=== PATIENT | female | born 1940 | race Caucasian/White ===

== ENCOUNTER 2023-06-17 21:26 | Inpatient (IN) | payer MEDICARE, OTHER ==
[~2023-06-17] VITALS: Ht 167.6 cm; Wt 75.3 kg
[2023-06-17] MEDS ORDERED: PIPERACI/TAZO 3.375GM/D5W 50ML PB IV ONE (21:47)
[2023-06-17 21:51] LABS: BASOPHILS % (AUTO) 0.3 % (0.0-2.0); EOSINOPHILS % (AUTO) 0.1 % (0.0-6.0); HEMATOCRIT 37 % (33-45); LYMPHOCYTES # (AUTO) 1.1 K/uL (0.8-4.8); LYMPHOCYTES % (AUTO) 17.9 % (20.0-44.0); MEAN CORPUSCULAR HEMOGLOBIN 28 PG (26.0-33.0); MEAN CORPUSCULAR HGB CONC 33 g/dl (31.0-36.0); MEAN CORPUSCULAR VOLUME 85 fL (82-100); MONOCYTES # (AUTO) 0.9 K/uL (0.1-1.30); MONOCYTES % (AUTO) 14.4 % (2.0-12.0); NEUTROPHILS # (AUTO) 4.3 K/uL (1.8-8.9); NEUTROPHILS % (AUTO) 67.3 % (43.0-81.0); PLATELET COUNT (AUTO) 158 K/uL (150-450); RED CELL DISTRIBUTION WIDTH 14.8 % (11.5-15.0); WHITE BLOOD COUNT (AUTO) 6.3 K/uL (4.3-11.0)
[2023-06-17] MEDS ORDERED: IV LR 1000 ML 1,000 ML BAG IV ONE (22:00)
[2023-06-17] MEDS ORDERED: VANCOMYCIN 1 GM in IV D5W 250 ML IV ONE (22:00)
[2023-06-17] MEDS ORDERED: PIPERACILLIN /TAZOBACTAM 3.375 G in IV D5W 50 ML IV ONE (22:00)
[2023-06-17 22:08] LABS: LACTIC ACID 1.5 mmol/L (0.4-2.0)
[2023-06-17 22:09] LABS: INR 1.04 (0.91-1.10); PARTIAL THROMBOPLASTIN TIME 32.9 SEC (24.3-34.3)
[2023-06-17 22:13] LABS: CALCIUM, SERUM 8.7 mg/dL (8.5-10.1); CARBON DIOXIDE 28 mmol/L (21-32); CHLORIDE 102 mmol/L (98-107); CREATININE 0.7 mg/dL (0.6-1.3); GLUCOSE 124 mg/dL (74-106); POTASSIUM 4.2 mmol/L (3.5-5.1); SODIUM SERUM 136 mmol/L (136-145); UREA NITROGEN, BLOOD 30 mg/dL (7-18)
[2023-06-17 22:17] LABS: ALANINE AMINOTRANSFERASE 33 U/L (12-78); ALBUMIN 2.9 g/dL (3.4-5.0); ALKALINE PHOSPHATASE 171 U/L (46-116); ASPARTATE AMINOTRANSFERASE 30 U/L (15-37); BILIRUBIN,DIRECT 0.1 mg/dL (0.0-0.2); BILIRUBIN,TOTAL 0.5 mg/dL (0.2-1.0); TOTAL PROTEIN, SERUM 7.1 g/dL (6.4-8.2)
[2023-06-17] MEDS ORDERED: ACETAMINOPHEN 650 MG/SUPP.RECT RC ONE (22:30)
[2023-06-17] MEDS ORDERED: ACETAMINOPHEN 325 MG TABLET PO ONE (22:30)
[2023-06-17] MEDS ORDERED: VANCOMYCIN 1 GM /D5W 250 ML PB IV ONE (22:45)
[2023-06-17] MEDS ORDERED: ACETAMINOPHEN 120 MG/SUPP.RECT RC ONE (22:46)
[2023-06-17 23:14] LABS: APPEARANCE,URINE SLIGHTLY CLOUDY (CLEAR); BILIRUBIN,URINE NEGATIVE (NEGATIVE); BLOOD, URINE NEGATIVE Ery/uL (NEGATIVE); COLOR,URINE YELLOW (YELLOW); KETONES,URINE NEGATIVE (NEGATIVE); LEUKOCYTE ESTERASE ,URINE NEGATIVE (NEGATIVE); NITRITE, URINE POSITIVE (NEGATIVE); PH,URINE 7.5 (5.0-8.0); PROTEIN,URINE NEGATIVE (NEGATIVE); UGLUCOSE NEGATIVE (NEGATIVE)
[2023-06-17 23:17] LABS: ADD URINE CULTURE YES; BACTERIA,URINE Many /HPF (None Seen); RBC,URINE 0-2 /HPF (0-2); SQUAMOUS EPITHELIAL CELL,UR Rare /HPF (None Seen)
[2023-06-18] MEDS ORDERED: ACETAMINOPHEN 325 MG TABLET PO PRN (01:00)
[2023-06-18] MEDS ORDERED: Z GUARD REMEDY 4 OZ OINT TP PRN (01:00)
[2023-06-18] MEDS ORDERED: ZOLPIDEM TARTRATE 5 MG TABLET PO PRN (01:00)
[2023-06-18] MEDS ORDERED: ONDANSETRON HCL/PF 4 MG/2 ML VIAL IVP PRN (01:00)
[2023-06-18] MEDS ORDERED: MAG HYDROX/AL HYDROX/SIMETH 30 ML UDC PO PRN (01:00)
[2023-06-18] MEDS ORDERED: MAGNESIUM HYDROXIDE 30 ML UDC PO PRN (01:00)
[2023-06-18] MEDS ORDERED: PIPERACILLIN /TAZOBACTAM 3.375 G in IV D5W 50 ML IV SCH ×3 (04:00→10:00)
[2023-06-18] MEDS: IV NS 0.9% 1,000 ML IV PRN ×2 (04:42→16:26)
[2023-06-18] MEDS ORDERED: PIPERACI/TAZO 3.375GM/D5W 50ML PB IV ONE (04:53)
[2023-06-18] MEDS ORDERED: VALS160T2 GT (05:37)
[2023-06-18] MEDS ORDERED: MULT-1119 GT (05:37)
[2023-06-18] MEDS ORDERED: ATOR40TA GT (05:37)
[2023-06-18] MEDS ORDERED: HYDR-4076 GT (05:37)
[2023-06-18] MEDS ORDERED: ALBU1.257 IH (05:37)
[2023-06-18] MEDS ORDERED: DOCU-141 GT (05:37)
[2023-06-18] MEDS ORDERED: ACET-2605 GT (05:37)
[2023-06-18] MEDS ORDERED: AMLO5TAB4 GT (05:37)
[2023-06-18] MEDS ORDERED: ACET-868 GT (05:37)
[2023-06-18] MEDS ORDERED: ASPI-1420 GT (05:37)
[2023-06-18 06:57] VITALS: BP 148/59; TEMP 99; O2SAT 98
[2023-06-18 07:02] VITALS: BP 148/59; TEMP 99.7; O2SAT 98
[2023-06-18 08:00] VITALS: BP 156/57; TEMP 99.8; O2SAT 98
[2023-06-18] MEDS: ENOXAPARIN SODIUM 40 MG/0.4 ML DISP.SYRIN SQ SCH (08:21)
[2023-06-18 18:58] VITALS: BP 147/76; TEMP 98.5; O2SAT 98
[2023-06-18 20:00] VITALS: BP 160/73; TEMP 98.8; O2SAT 95
[2023-06-18] MEDS: PIPERACILLIN /TAZOBACTAM 3.375 G in IV D5W 100 ML IV SCH (21:20)
[2023-06-19] VITALS: BP 121/72; TEMP 99; O2SAT 96
[2023-06-19 04:00] VITALS: BP 142/71; TEMP 98.2; O2SAT 96
[2023-06-19 06:40] LABS: BASOPHILS % (AUTO) 0.3 % (0.0-2.0); EOSINOPHILS # (AUTO) 0.1 K/uL (0.0-0.7); EOSINOPHILS % (AUTO) 0.9 % (0.0-6.0); HEMATOCRIT 37 % (33-45); LYMPHOCYTES # (AUTO) 1.6 K/uL (0.8-4.8); LYMPHOCYTES % (AUTO) 25.1 % (20.0-44.0); MEAN CORPUSCULAR HEMOGLOBIN 28 PG (26.0-33.0); MEAN CORPUSCULAR HGB CONC 32 g/dl (31.0-36.0); MEAN CORPUSCULAR VOLUME 89 fL (82-100); MONOCYTES # (AUTO) 0.7 K/uL (0.1-1.30); MONOCYTES % (AUTO) 11.2 % (2.0-12.0); NEUTROPHILS % (AUTO) 62.5 % (43.0-81.0); PLATELET COUNT (AUTO) 123 K/uL (150-450); RED BLOOD CELL COUNT(AUTO) 4.21 MIL/uL (4.0-5.2); RED CELL DISTRIBUTION WIDTH 15.4 % (11.5-15.0); WHITE BLOOD COUNT (AUTO) 6.4 K/uL (4.3-11.0)
[2023-06-19 07:10] LABS: CALCIUM, SERUM 8.7 mg/dL (8.5-10.1); CARBON DIOXIDE 23 mmol/L (21-32); CHLORIDE 103 mmol/L (98-107); CREATININE 0.5 mg/dL (0.6-1.3); GLUCOSE 72 mg/dL (74-106); MAGNESIUM 2.1 mg/dL (1.8-2.4); PHOSPHORUS 3.1 mg/dL (2.5-4.9); POTASSIUM 3.5 mmol/L (3.5-5.1); SODIUM SERUM 136 mmol/L (136-145); UREA NITROGEN, BLOOD 15 mg/dL (7-18)
[2023-06-19 07:30] VITALS: BP 123/101; TEMP 99.5; O2SAT 91
[2023-06-19] MEDS ORDERED: NUTR150016 GT (07:47)
[2023-06-19] MEDS ORDERED: CRAN425C6 GT (07:47)
[2023-06-19] MEDS ORDERED: MULT-447 GT (07:47)
[2023-06-19] MEDS ORDERED: ASPI-1169 GT (07:47)
[2023-06-19] MEDS ORDERED: ZINC56.713 TP (07:47)
[2023-06-19] MEDS: PIPERACILLIN /TAZOBACTAM 3.375 G in IV D5W 100 ML IV SCH ×2 (09:01→20:04)
[2023-06-19] MEDS: ENOXAPARIN SODIUM 40 MG/0.4 ML DISP.SYRIN SQ SCH (09:05)
[2023-06-19] MEDS ORDERED: MAGNESIUM HYDROXIDE 30 ML UDC GT PRN (09:37)
[2023-06-19] MEDS ORDERED: ZOLPIDEM TARTRATE 5 MG TABLET GT PRN (09:37)
[2023-06-19] MEDS ORDERED: MAG HYDROX/AL HYDROX/SIMETH 30 ML UDC GT PRN (09:37)
[2023-06-19] MEDS: JEVITY 1.2 CAL 1,000 ML BOTTLE GT PRN (09:51)
[2023-06-19] MEDS ORDERED: ACETAMINOPHEN 650 MG/20.3 ML UDC GT PRN (10:00)
[2023-06-19] MEDS: VANCOMYCIN 1.25 GM in IV D5W 250 ML IV SCH (12:40)
[2023-06-19] MEDS ORDERED: hydrALAZINE HCL 25 MG TABLET GT PRN (15:30)
[2023-06-19] MEDS ORDERED: ALBUTEROL HALF STRENGTH 1.25 MG/3 ML VIAL.NEB IH PRN (15:30)
[2023-06-19] MEDS: VALSARTAN 80 MG TABLET GT SCH (17:37)
[2023-06-19] MEDS: ACETAMINOPHEN ES 500 MG TABLET GT SCH (17:37)
[2023-06-19 20:00] VITALS: BP 146/71; TEMP 98; O2SAT 95
[2023-06-19] MEDS: MUPIROCIN OINT 2% 22 GM TUBE NS SCH (20:34)
[2023-06-19] MEDS ORDERED: DOCUSATE SODIUM 100 MG CAPSULE PO SCH (22:00)
[2023-06-19] MEDS: ATORVASTATIN 40 MG TABLET GT SCH (22:08)
[2023-06-20] MEDS: PIPERACILLIN /TAZOBACTAM 3.375 G in IV D5W 100 ML IV SCH ×3 (04:57→20:18)
[2023-06-20 06:12] LABS: CALCIUM, SERUM 8.6 mg/dL (8.5-10.1); CARBON DIOXIDE 26 mmol/L (21-32); CHLORIDE 105 mmol/L (98-107); CREATININE 0.5 mg/dL (0.6-1.3); GLUCOSE 150 mg/dL (74-106); POTASSIUM 3.4 mmol/L (3.5-5.1); SODIUM SERUM 138 mmol/L (136-145); UREA NITROGEN, BLOOD 16 mg/dL (7-18)
[2023-06-20] MEDS: IV NS 0.9% 1,000 ML IV PRN ×2 (06:31→16:57)
[2023-06-20 08:00] VITALS: BP 176/78; TEMP 100; O2SAT 98
[2023-06-20] MEDS: ACETAMINOPHEN ES 500 MG TABLET GT SCH ×2 (08:36→17:01)
[2023-06-20] MEDS: ASPIRIN 81 MG TAB.CHEW GT SCH (08:36)
[2023-06-20] MEDS: VALSARTAN 80 MG TABLET GT SCH ×2 (08:37→17:01)
[2023-06-20] MEDS: AMLODIPINE BESYLATE 5 MG TABLET GT SCH (08:37)
[2023-06-20] MEDS: ENOXAPARIN SODIUM 40 MG/0.4 ML DISP.SYRIN SQ SCH (08:39)
[2023-06-20] MEDS: MUPIROCIN OINT 2% 22 GM TUBE NS SCH ×2 (08:45→20:31)
[2023-06-20 09:20] VITALS: BP 148/76; TEMP 98.2; O2SAT 97
[2023-06-20] MEDS: JEVITY 1.2 CAL 1,000 ML BOTTLE GT PRN (10:58)
[2023-06-20] MEDS: VANCOMYCIN 1.25 GM in IV D5W 250 ML IV SCH (11:25)
[2023-06-20] MEDS ORDERED: POTASSIUM CHLORIDE 20 MEQ POWDER PACKET GT ONE (12:00)
[2023-06-20 16:00] VITALS: BP 158/78; TEMP 99.7; O2SAT 98
[2023-06-20 17:15] VITALS: TEMP 98.8
[2023-06-20 20:00] VITALS: BP 153/82; TEMP 97.7; O2SAT 97
[2023-06-20] MEDS: DOCUSATE SODIUM LIQ 100 MG/10 ML UDC GT SCH (21:35)
[2023-06-20] MEDS: ATORVASTATIN 40 MG TABLET GT SCH (21:35)
[2023-06-21] MEDS: IV NS 0.9% 1,000 ML IV PRN ×2 (03:21→17:39)
[2023-06-21] MEDS: PIPERACILLIN /TAZOBACTAM 3.375 G in IV D5W 100 ML IV SCH ×3 (04:10→20:39)
[2023-06-21] MEDS: JEVITY 1.2 CAL 1,000 ML BOTTLE GT PRN ×2 (04:12→23:57)
[2023-06-21 06:54] LABS: CALCIUM, SERUM 8.6 mg/dL (8.5-10.1); CARBON DIOXIDE 25 mmol/L (21-32); CREATININE 0.5 mg/dL (0.6-1.3); GLUCOSE 129 mg/dL (74-106); UREA NITROGEN, BLOOD 12 mg/dL (7-18)
[2023-06-21 07:05] LABS: CHLORIDE 104 mmol/L (98-107); POTASSIUM 3.6 mmol/L (3.5-5.1); SODIUM SERUM 138 mmol/L (136-145)
[2023-06-21 08:00] VITALS: BP 133/94; TEMP 98.6; O2SAT 94
[2023-06-21] MEDS: ASPIRIN 81 MG TAB.CHEW GT SCH (08:31)
[2023-06-21] MEDS: ENOXAPARIN SODIUM 40 MG/0.4 ML DISP.SYRIN SQ SCH (08:33)
[2023-06-21] MEDS: AMLODIPINE BESYLATE 5 MG TABLET GT SCH (08:33)
[2023-06-21] MEDS: VALSARTAN 80 MG TABLET GT SCH ×2 (08:34→16:11)
[2023-06-21] MEDS: ACETAMINOPHEN ES 500 MG TABLET GT SCH ×2 (08:34→16:09)
[2023-06-21] MEDS: MUPIROCIN OINT 2% 22 GM TUBE NS SCH ×2 (08:35→20:50)
[2023-06-21 15:48] VITALS: BP 130/96; TEMP 97.9; O2SAT 98
[2023-06-21 20:00] VITALS: BP 153/74; TEMP 98.4; O2SAT 97
[2023-06-21] MEDS: DOCUSATE SODIUM LIQ 100 MG/10 ML UDC GT SCH (21:57)
[2023-06-21] MEDS: ATORVASTATIN 40 MG TABLET GT SCH (21:57)
[2023-06-22] MEDS: PIPERACILLIN /TAZOBACTAM 3.375 G in IV D5W 100 ML IV SCH (04:32)
[2023-06-22 06:42] LABS: CALCIUM, SERUM 8.6 mg/dL (8.5-10.1); CARBON DIOXIDE 25 mmol/L (21-32); CHLORIDE 104 mmol/L (98-107); CREATININE 0.5 mg/dL (0.6-1.3); GLUCOSE 109 mg/dL (74-106); POTASSIUM 3.9 mmol/L (3.5-5.1); SODIUM SERUM 137 mmol/L (136-145); UREA NITROGEN, BLOOD 15 mg/dL (7-18)
[2023-06-22 07:00] VITALS: BP 127/69; TEMP 99.1; O2SAT 98
[2023-06-22] MEDS: ENOXAPARIN SODIUM 40 MG/0.4 ML DISP.SYRIN SQ SCH (09:23)
[2023-06-22] MEDS: ACETAMINOPHEN ES 500 MG TABLET GT SCH ×2 (09:24→16:25)
[2023-06-22] MEDS: ASPIRIN 81 MG TAB.CHEW GT SCH (09:24)
[2023-06-22] MEDS: AMLODIPINE BESYLATE 5 MG TABLET GT SCH (09:24)
[2023-06-22] MEDS: VALSARTAN 80 MG TABLET GT SCH ×2 (09:24→16:26)
[2023-06-22] MEDS: MUPIROCIN OINT 2% 22 GM TUBE NS SCH ×2 (10:44→21:18)
[2023-06-22] MEDS: SULFAMETH/TRIMETH 800/160 MG 1 UDTAB TABLET PO SCH ×2 (10:53→21:14)
[2023-06-22 20:00] VITALS: BP 141/67; TEMP 98; O2SAT 98
[2023-06-22] MEDS: DOCUSATE SODIUM LIQ 100 MG/10 ML UDC GT SCH (21:14)
[2023-06-22] MEDS: ATORVASTATIN 40 MG TABLET GT SCH (21:14)
[2023-06-23 04:00] VITALS: BP 150/59; TEMP 98; O2SAT 98
[2023-06-23] MEDS: MUPIROCIN OINT 2% 22 GM TUBE NS SCH (09:00)
[2023-06-23] MEDS: ACETAMINOPHEN ES 500 MG TABLET GT SCH ×2 (09:00→17:00)
[2023-06-23] MEDS ORDERED: LACT-209 GT (09:07)
[2023-06-23] MEDS ORDERED: Sulfameth/Trimeth 800/160 Mg PO (09:07)
[2023-06-23] MEDS: SULFAMETH/TRIMETH 800/160 MG 1 UDTAB TABLET PO SCH (09:51)
[2023-06-23] MEDS: ASPIRIN 81 MG TAB.CHEW GT SCH (09:51)
[2023-06-23] MEDS: VALSARTAN 80 MG TABLET GT SCH ×2 (09:53→17:29)
[2023-06-23] MEDS: ENOXAPARIN SODIUM 40 MG/0.4 ML DISP.SYRIN SQ SCH (09:54)
[2023-06-23] MEDS: AMLODIPINE BESYLATE 5 MG TABLET GT SCH (10:02)
[2023-06-23 11:24] LABS: CALCIUM, SERUM 8.8 mg/dL (8.5-10.1); CARBON DIOXIDE 26 mmol/L (21-32); CHLORIDE 107 mmol/L (98-107); CREATININE 0.4 mg/dL (0.6-1.3); GLUCOSE 118 mg/dL (74-106); SODIUM SERUM 139 mmol/L (136-145); UREA NITROGEN, BLOOD 11 mg/dL (7-18)
[2023-06-23 12:00] VITALS: BP 131/57; TEMP 97.9; O2SAT 96
[2023-06-23] MEDS: JEVITY 1.2 CAL 1,000 ML BOTTLE GT PRN (12:11)
[2023-06-23 17:29] VITALS: BP 131/57
== END 2023-06-23 18:45 | DRG 871 ==
LOC: ER 21:33 → TELE 06-18 03:19 → MED 06-19 09:19 → TELE1 06-22 14:03 → MEDSG1 06-22 14:51
PROVIDERS: ADMIT Internal Medicine; ATTEND Internal Medicine
DX: A41.9 Sepsis, unspecified organism (principal); G93.41 Metabolic encephalopathy; U07.1 COVID-19; N39.0 Urinary tract infection, site not specified; I69.351 Hemiplegia and hemiparesis following cerebral infarction affecting right dominant side; I11.0 Hypertensive heart disease with heart failure; I50.9 Heart failure, unspecified; F20.9 Schizophrenia, unspecified; R13.10 Dysphagia, unspecified; I25.10 Atherosclerotic heart disease of native coronary artery without angina pectoris; Z86.718 Personal history of other venous thrombosis and embolism; N20.0 Calculus of kidney; I71.40 Abdominal aortic aneurysm, without rupture, unspecified
CPT/HCPCS: 36415; 71045-TC; 80048-TC; 80076-TC; 81001; 83605-TC; 83735-TC; 84100-TC; 84484-TC; 85025-TC; 85378-TC; 85730-TC; 87040-TC; 87081-TC; 87086-TC; A4223; C9803; G0378; J1650; J2405; J2543; J3370; J7030; J7050; J7060; J7120